=== PATIENT | male | born 1940 | race Caucasian/White ===

== ENCOUNTER 2018-07-29 18:39 | Emergency (ER) | payer MEDICARE, BC ==
[~2018-07-29] VITALS: Ht 170.2 cm; Wt 86.4 kg
[~2018-07-29 18:39] MED LIST: ACYC-202 PO; ALBU8.5H8 INH; ALPR-623 PO; ASPI81TA52 PO; CELE-193 PO; FLUT1DIS4 INH; FURO40TA4 PO; FURO80TA87 PO; HYDR-4353 PO; LOSA25TA96 PO; NITR0.4T48 SL; OMEP20CA10 PO; POTA10TA10 PO; PREG50CA PO; TERA5CAP4 PO; UMEC62.5 INH
[2018-07-29 18:46] VITALS: BP 138/78
[2018-07-29 19:09] LABS: BASOPHILS % (AUTO) 0.4 % (0-1); EOSINOPHILS # (AUTO) 0.1 X10'3 (0-0.9); EOSINOPHILS % (AUTO) 1.4 % (0-6); HEMATOCRIT 36.5 % (42.0-52.0); LYMPHOCYTES # (AUTO) 1.3 X10'3 (1.1-4.8); LYMPHOCYTES % (AUTO) 21.5 % (21-51); MEAN CORPUSCULAR HEMOGLOBIN 29.6 PG (27.0-31.0); MEAN CORPUSCULAR HGB CONC 32.8 % (33.0-36.5); MEAN CORPUSCULAR VOLUME 90.2 FL (78-98); MONOCYTES # (AUTO) 0.5 X10'3 (0-0.9); MONOCYTES % (AUTO) 9.2 % (2-12); NEUTROPHILS % (AUTO) 67.5 % (42-75); PLATELET COUNT 236 X10'3 (140-440); RED BLOOD COUNT 4.05 X10'6 (4.70-6.10); RED CELL DISTRIBUTION WIDTH 15.5 % (11.5-14.5)
[2018-07-29 19:21] LABS: PROTHROMBIN TIME 10.3 SECONDS (9.0-12.0)
[2018-07-29 19:22] LABS: ALBUMIN 3.9 G/DL (3.4-5.0); ALBUMIN/GLOBULIN RATIO 1.3 (1.1-1.5); ALKALINE PHOSPHATASE 68 IU/L (46-116); ANION GAP 6 (8-16); ASPARTATE AMINO TRANSFERASE 13 U/L (10-37); BILIRUBIN,TOTAL 0.4 MG/DL (0.1-1.0); BLOOD UREA NITROGEN 9 MG/DL (7-18); BUN/CREATININE RATIO 8.9 (5.4-32.0); CALCIUM 8.8 MG/DL (8.5-10.1); CHLORIDE 99 MMOL/L (99-107); CREATININE 1.01 MG/DL (0.60-1.10); GLUCOSE 138 MG/DL (70-104); PARTIAL THROMBOPLASTIN TIME 24 SECONDS (22-32); POTASSIUM 3.4 MMOL/L (3.5-5.1); SODIUM 135 MMOL/L (135-145); TOTAL CARBON DIOXIDE 30.4 MMOL/L (24-32); TOTAL PROTEIN 6.8 G/DL (6.4-8.2); eGFR 71 ML/MIN
[2018-07-29 19:27] LABS: TROPONIN I < 0.04 NG/ML (0.0-0.05)
[2018-07-29 19:31] LABS: ALANINE AMINOTRANSFERASE 22 U/L (12-78)
== END 2018-07-29 21:27 | disposition left against medical advice (07) ==
LOC: ER 18:40
DX: R55 Syncope and collapse (principal); I25.10 Atherosclerotic heart disease of native coronary artery without angina pectoris; E78.00 Pure hypercholesterolemia, unspecified; I10 Essential (primary) hypertension; J44.9 Chronic obstructive pulmonary disease, unspecified; Z85.118 Personal history of other malignant neoplasm of bronchus and lung; Z98.61 Coronary angioplasty status; Z98.890 Other specified postprocedural states; Z88.0 Allergy status to penicillin; Z88.8 Allergy status to other drugs, medicaments and biological substances; Z79.82 Long term (current) use of aspirin; Z79.899 Other long term (current) drug therapy
CPT/HCPCS: 36415; 70450; 71045; 80053; 84484; 85025; 85610; 85730; 93005; 99284